=== PATIENT | male | born 1975 | race Caucasian/White ===

== ENCOUNTER → 2020-03-10 11:15 | Outpatient (CLI) | payer OTHER, SELFPAY ==
--- NOTE | 2020-03-10 11:24 | XR_ITS ---
PROCEDURE: XR CHEST 2V CLINICAL HISTORY: dyspnea COMPARISON: No exams were available for comparison FINDINGS: The cardiomediastinal silhouette and pulmonary vascularity are within normal limits. The lungs are clear without infiltrates, suspicious nodules, or pleural effusions. There is hyperinflation No acute bony abnormalities. There is a mild pectus deformity IMPRESSION: Hyperinflation suggesting small airway disease otherwise negative Dictated by: Brandon Benítez MD 03/10/2020 13:17 Brandon Benítez MD in [place] 03/10/2020 13:17
== END ==
PROVIDERS: PCP Family Medicine; Visit Provider Family Medicine
DX: R06.00 Dyspnea, unspecified (principal)
CPT/HCPCS: 71046

== ENCOUNTER → 2021-07-06 16:00 | Outpatient (CLI) | payer OTHER, SELFPAY ==
[2021-07-06 14:17] LABS: Basophils # 0.1 K/mm3 (0-0.2); Basophils % 0.9 % (0.1-2.0); Eosinophils # 0.1 K/mm3 (0.0-0.4); Eosinophils % 2.1 % (0.1-12.0); Hematocrit 43.4 % (42.0-52.0); Hemoglobin 14.8 g/dL (14.1-18.0); Lymphocytes % 37.8 % (10-50); Mean Corpuscular Hemoglobin 33.5 pg (27.0-31.2); Mean Corpuscular Volume 98.4 fl (80-94); Mean Platelet Volume 7.4 fl (7.4-10.4); Monocytes # 0.4 K/mm3 (0.1-1.0); Monocytes % 6.9 % (1.7-9.3); Neutrophils # 2.7 K/mm3 (1.8-7.8); Neutrophils % 52.3 % (37.0-80.0); Platelet Count 376 K/mm3 (142-424); Red Blood Count 4.41 M/mm3 (4.60-6.20); White Blood Count 5.2 K/mm3 (4.8-10.8)
[2021-07-06 14:23] LABS: Alanine Aminotransferase 21 U/L (12-78); Albumin Level 4.8 g/dl (3.5-5.0); Alkaline Phosphatase 60 U/L (38-126); Anion Gap 10.6 mEq/L (5-15); Aspartate Amino Transferase 30 U/L (17-59); Bilirubin,Total 0.6 mg/dl (0.2-1.3); Blood Urea Nitrogen 11 mg/dl (9-20); Calcium 9.6 mg/dl (8.4-10.2); Carbon Dioxide 30 mmol/L (22.0-30.0); Chloride 102 mmol/L (98-107); Chol/HDL Ratio 2.5 (1-3.5); Cholesterol 203 mg/dl (140-200); Estimated Glomerular Filt Rate 146 ml/min (>60); GFR (African American) 177 ML/MIN (>60); Globulin 2.4 g/dL (1.3-3.2); Glucose 104 mg/dl (74-100); HDL Cholesterol 82 mg/dl (40-60); Potassium 4.6 mmoL/L (3.5-5.1); Sodium 138 mmol/L (136-145); Total Protein,Serum 7.2 g/dl (6.3-8.2); Triglycerides 69 mg/dl (30-150); VLDL Cholesterol 14 mg/dL (0-40)
[2021-07-06 14:35] LABS: Direct LDL Cholesterol 113.68 mg/dL (100-129)
[2021-07-06 14:54] LABS: Thyroid Stimulating Hormone 1.74 uIU/mL (0.465-4.68)
[2021-07-12 17:18] LABS: Testosterone, Total, LC/MS 381.1 ng/dL (264.0-916.0); Testosterone,Free 8.8 pg/mL (6.8-21.5)
== END ==
LOC: LAB.DROPOF 07-07 14:02
PROVIDERS: Visit Provider Family Medicine
DX: Z00.00 Encounter for general adult medical examination without abnormal findings (principal)
CPT/HCPCS: 80053; 80061; 84402; 84403; 84443; 85025

== ENCOUNTER → 2022-01-09 09:43 | Outpatient (CLI) | payer OTHER, SELFPAY | PROVIDERS: PCP Family Medicine; Visit Provider Internal Medicine Pulmonary Disease | DX: R06.00 Dyspnea, unspecified (principal) | CPT/HCPCS: 94060; 94618; 94726; 94729 ==

== ENCOUNTER → 2022-01-19 08:56 | Outpatient (CLI) | payer OTHER, SELFPAY ==
[2022-01-19 10:22] LABS: D-Dimer 0.65 ug/mL (0.0-0.5)
[2022-01-20 10:16] LABS: Alpha-1-Antitrypsin 146 mg/dL (101-187)
== END ==
PROVIDERS: PCP Family Medicine; Visit Provider Internal Medicine Pulmonary Disease
DX: J44.9 Chronic obstructive pulmonary disease, unspecified (principal)
CPT/HCPCS: 36415; 82103; 85378

== ENCOUNTER → 2022-02-08 15:25 | Outpatient (CLI) | payer OTHER, SELFPAY | PROVIDERS: PCP Family Medicine; Visit Provider Family Medicine | DX: R10.30 Lower abdominal pain, unspecified (principal) | CPT/HCPCS: 87086 ==

== ENCOUNTER → 2022-05-17 13:09 | Outpatient (CLI) | payer OTHER, SELFPAY ==
[2022-05-19 06:31] LABS: HSV 1 IgG, Type Spec >62.20 index (0.00-0.90); HSV 2 IgG, Type Spec <0.91 index (0.00-0.90)
[2022-05-20 11:33] LABS: Neisseria gonorrhoeae, NAA Negative (Negative)
== END ==
LOC: LAB.DROPOF 13:09
PROVIDERS: PCP Family Medicine; Visit Provider Family Medicine
DX: Z20.2 Contact with and (suspected) exposure to infections with a predominantly sexual mode of transmission (principal); N34.2 Other urethritis; Z11.4 Encounter for screening for human immunodeficiency virus [HIV]
CPT/HCPCS: 86695; 86790; 87491; 87591